=== PATIENT | male | born 1955 | race Caucasian/White ===

== ENCOUNTER 2021-09-25 05:45 | Emergency (ER) | payer MEDICARE, BC ==
[2021-09-25 06:28] LABS: URINE BILIRUBIN - DIPSTICK NEGATIVE (NEGATIVE); URINE BLOOD DIPSTICK TRACE-INTACT (NEGATIVE); URINE COLOR YELLOW; URINE GLUCOSE - DIPSTICK 250 mg/dL (NEGATIVE); URINE KETONE NEGATIVE (NEGATIVE); URINE LEUK ESTERASE NEGATIVE (NEGATIVE); URINE NITRITE - DIPSTICK NEGATIVE (Negative); URINE PH 6.5 (4.5-8.0); URINE PROTEIN - DIPSTICK 30 mg/dL (NEG-TRACE); URINE SPECIFIC GRAVITY 1.015; URINE UROBILINOGEN - DIPSTICK 0.2 E.U./dL (0.2)
[2021-09-25 06:28] LABS: HEMATOCRIT 41.5 % (39.0-50.0); HEMOGLOBIN 12.7 g/dl (14.0-18.0); IMMATURE GRANULOCYTES 0.3 % (0.0-5.0); MEAN CELL VOLUME 93.9 fL CALC (80.0-100.0); MEAN CORPUSCULAR HGB 28.7 pG CALC (26.0-32.0); MEAN CORPUSCULAR HGB CONC 30.6 g/dL CAL (32.0-36.0); NEUT# 9.9 thou/uL (1.82-7.42); RED BLOOD COUNT 4.42 mill/uL (4.70-6.10); RED CELL DISTRI WIDTH 15.9 % (11.5-15.5)
[2021-09-25] MEDS ORDERED: CYCLOSPORIN PO (06:30)
[2021-09-25] MEDS ORDERED: PREDNISONE5 MG PO (06:31)
[2021-09-25] MEDS ORDERED: DILTIAZEM90 M1 PO (06:34)
[2021-09-25] MEDS ORDERED: PANTOPRAZOLE SO40 M1 PO (06:34)
[2021-09-25] MEDS ORDERED: METOPROLOL TART75 MG PO (06:36)
[2021-09-25 06:37] LABS: URINE SQUAMOUS EPITHELIAL CELL FEW EPI/hpf (0-FEW)
[2021-09-25 06:39] LABS: ALBUMIN 3.3 g/dL (3.2-5.0); ALKALINE PHOSPHATASE 92 u/l (38-126); AMYLASE 83 u/l (30-110); ANION GAP 11 (6-22 (CALC)); BILIRUBIN, TOTAL 0.8 mg/dL (0.0-1.4); BUN 23 mg/dL (8-23); BUN/CREATININE RATIO 23 (12-20 (CALC)); CARBON DIOXIDE 28 mmol/l (22-30); CHLORIDE 105 mmol/l (95-108); GFR > 60 ML/MIN (>=60 (CALC)); GFR FOR AFR.AMER. > 60 ML/MIN (>=60 (CALC)); LIPASE 42 u/l (23-300); POTASSIUM 4.1 mmol/l (3.5-5.1); SGOT/AST 24 u/l (19-48); SODIUM 139 mmol/l (137-146); TOTAL PROTEIN 6.8 g/dL (6.3-8.2)
[2021-09-25 08:00] VITALS: BP 189/84
[2021-09-25] MEDS ORDERED: CIPROFLOXACN500 MG PO (11:10)
[2021-09-25] MEDS ORDERED: ONDANSETRON4 MG PO (11:10)
--- NOTE | 2021-09-26 14:40 | NUR ---
PRELIMINARY CULTURE RESULTS CALLED TO 3/4 VIALS GROWING GRAM (+) COCCI. PATIENT TOLD TO RETURN TO THE ED. LAB REPORTS [facility].
--- NOTE | 2021-09-27 12:17 | NUR ---
FINAL BLOOD CX RESULTS SHOW MSSA. PT TRANSFERRED TO [facility]. REPORTED RESULTS TO PT'S NURSE LANEY, FAXED TO [phone].
== END 2021-09-25 11:30 | disposition home or self-care (01) ==
LOC: ED 05:45
PROVIDERS: Family Medicine
DX: N39.0 Urinary tract infection, site not specified (principal); I10 Essential (primary) hypertension; E11.9 Type 2 diabetes mellitus without complications; Z94.1 Heart transplant status; Z85.828 Personal history of other malignant neoplasm of skin; Z85.51 Personal history of malignant neoplasm of bladder; Z85.05 Personal history of malignant neoplasm of liver; Z91.041 Radiographic dye allergy status; Z86.16 Personal history of COVID-19; Z20.822 Contact with and (suspected) exposure to COVID-19
CPT/HCPCS: Q9967

== ENCOUNTER 2021-09-26 12:34 | Emergency (ER) | payer MEDICARE, BC ==
[~2021-09-26] VITALS: Ht 170.2 cm; Wt 75.0 kg
[~2021-09-26 12:34] MED LIST: CIPROFLOXACN500 MG PO; CYCLOSPORIN PO; DILTIAZEM90 M1 PO; METOPROLOL TART75 MG PO; ONDANSETRON4 MG PO; PANTOPRAZOLE SO40 M1 PO; PREDNISONE5 MG PO
[2021-09-26 14:32] LABS: HEMATOCRIT 43.4 % (39.0-50.0); HEMOGLOBIN 13.4 g/dl (14.0-18.0); IMMATURE GRANULOCYTES 0.4 % (0.0-5.0); MEAN CELL VOLUME 92.7 fL CALC (80.0-100.0); MEAN CORPUSCULAR HGB 28.6 pG CALC (26.0-32.0); MEAN CORPUSCULAR HGB CONC 30.9 g/dL CAL (32.0-36.0); NEUT# 14.18 thou/uL (1.82-7.42); RED BLOOD COUNT 4.68 mill/uL (4.70-6.10); RED CELL DISTRI WIDTH 15.6 % (11.5-15.5)
[2021-09-26 14:44] LABS: ALBUMIN 3.6 g/dL (3.2-5.0); ALKALINE PHOSPHATASE 100 u/l (38-126); ANION GAP 14 (6-22 (CALC)); BILIRUBIN, TOTAL 0.6 mg/dL (0.0-1.4); BUN 38 mg/dL (8-23); BUN/CREATININE RATIO 31 (12-20 (CALC)); CARBON DIOXIDE 23 mmol/l (22-30); CHLORIDE 104 mmol/l (95-108); CREATININE 1.2 mg/dL (0.7-1.3); GFR 60 ML/MIN (>=60 (CALC)); GFR FOR AFR.AMER. > 60 ML/MIN (>=60 (CALC)); SGOT/AST 23 u/l (19-48); SODIUM 137 mmol/l (137-146); TOTAL PROTEIN 7.6 g/dL (6.3-8.2)
[2021-09-26 21:30] VITALS: BP 190/95
== END 2021-09-26 21:35 | disposition short-term general hospital (02) ==
LOC: ED 12:34
PROVIDERS: Emergency Medicine
DX: R78.81 Bacteremia (principal); I10 Essential (primary) hypertension; E11.9 Type 2 diabetes mellitus without complications; Z94.1 Heart transplant status; Z85.05 Personal history of malignant neoplasm of liver; Z85.51 Personal history of malignant neoplasm of bladder; Z85.828 Personal history of other malignant neoplasm of skin
CPT/HCPCS: J0878